=== PATIENT | female | born 1960 | race Caucasian/White ===

== ENCOUNTER 2020-11-24 08:00 | Outpatient (CLI) | payer BC | END 2020-11-24 23:59 | disposition home or self-care (01) | LOC: LAB.S 08:00 | PROVIDERS: ATTEND Physician Assistant Medical | DX: H01.9 Unspecified inflammation of eyelid (principal) | CPT/HCPCS: 87070; 87205 ==

== ENCOUNTER 2021-02-22 08:00 | Outpatient (CLI) | payer BC ==
[2021-02-22 16:34] LABS: BILIRUBIN,URINE NEGATIVE (NEGATIVE); GLUCOSE, URINE (UA) NEGATIVE (NEGATIVE); KETONES,URINE (UA) NEGATIVE (NEGATIVE); LEUKOCYTE ESTERASE, URINE MODERATE (NEGATIVE); NITRITE,URINE NEGATIVE (NEGATIVE); OCCULT BLOOD,URINE LARGE (NEGATIVE); PH,URINE 6.5 PH (5.0-7.5); PROTEIN,URINE 30 mg/dL (NEGATIVE); UROBILINOGEN,URINE 0.2 (NORMAL) E.U./dL (NORMAL)
[2021-02-22 16:36] LABS: CLARITY,URINE CLOUDY (CLEAR)
[2021-02-22 16:46] LABS: BACTERIA,URINE Few /HPF (None Seen); SQUAMOUS EPITHELIAL CELL,UR RARE Squamous (<= Few); WBC,URINE >25 /HPF (0-5)
== END 2021-02-22 23:59 | disposition home or self-care (01) ==
LOC: LAB.S 08:00
PROVIDERS: ATTEND Emergency Medicine
DX: N30.01 Acute cystitis with hematuria (principal)
CPT/HCPCS: 81001; 87086; 87181

== ENCOUNTER 2021-08-13 08:00 | Outpatient (CLI) | payer BC ==
[2021-08-13 14:25] LABS: BILIRUBIN,URINE NEGATIVE (NEGATIVE); GLUCOSE, URINE (UA) NEGATIVE (NEGATIVE); KETONES,URINE (UA) NEGATIVE (NEGATIVE); LEUKOCYTE ESTERASE, URINE MODERATE (NEGATIVE); NITRITE,URINE POSITIVE (NEGATIVE); OCCULT BLOOD,URINE LARGE (NEGATIVE); PH,URINE 6.5 PH (5.0-7.5); PROTEIN,URINE TRACE mg/dL (NEGATIVE); UROBILINOGEN,URINE 0.2 (NORMAL) E.U./dL (NORMAL)
[2021-08-13 14:33] LABS: BACTERIA,URINE Moderate /HPF (None Seen); CLARITY,URINE CLOUDY (CLEAR); RBC,URINE TNTC /HPF (0-5); SQUAMOUS EPITHELIAL CELL,UR FEW Squamous (<= Few); WBC,URINE >25 /HPF (0-5)
== END 2021-08-13 23:59 | disposition home or self-care (01) ==
LOC: LAB.S 08:00
PROVIDERS: ATTEND Physician Assistant Medical
DX: N30.01 Acute cystitis with hematuria (principal)
CPT/HCPCS: 81001; 87086

== ENCOUNTER 2021-10-10 12:40 | Emergency (ER) | payer BC ==
--- NOTE | 2021-10-10 13:11 | ED Physician Documentation ---
History of Present Illness - Stated complaint Stated Complaint: L GROIN SWELLING - Chief complaint Chief Complaint: Ext Problem - Additonal information Additional information: 61-year-old female presents to the emergency department for evaluation of 2 days left groin swelling and mild discomfort. She denies any falls or trauma. She is denying any swelling in the femur knee calf or foot. No chest pain or shortness of air. She does have night sweats but attributes this to menopause unchanged from recent baseline. No weight loss. No cough or fevers. Reports that she did have arthroscopy of the left knee July 05, 2021. She did have a televisit this morning with a provider through her insurance who advised her to come to the ER to be evaluated for a deep vein thrombosis. Patient states that she has increased the amount of weight she has been using with leg strengthening exercises but denies any known inciting event or trauma. Past medical history is most significant for hypertension for which she is compliant with her medications. Non-smoker. No anticoagulation. No history of DVT or cancer. Review of Systems Constitutional: reports: Reviewed and negative Ears: reports: Reviewed and negative Throat: reports: Reviewed and negative Cardiac: reports: Reviewed and negative Respiratory: reports: Reviewed and negative GI: reports: Reviewed and negative : reports: Other (left inguinal swelling) Skin: reports: Reviewed and negative Musculoskeletal: reports: Reviewed and negative Neurologic: reports: Reviewed and negative PD PAST MEDICAL HISTORY - Allergies Allergies/Adverse Reactions: Allergies Allergy/AdvReac Type Severity Reaction Status Date / Time diclofenac Allergy Itching Verified 10/10/21 12:51 PD ED PE NORMAL - General General: Alert and oriented X 3, No acute distress, Well developed/nourished - HEENT HEENT: Atraumatic, Ears normal, Moist mucous membranes - Neck Neck: Supple, no meningeal sign - Cardiac Cardiac: RRR, No murmur - Respiratory Respiratory: No respiratory distress, Clear bilaterally - Abdomen Abdomen: Normal bowel sounds, Soft, Non tender - Back Back: No CVA TTP - Derm Derm: Normal color, Warm and dry, No rash - Extremities Extremities: No deformity, No tenderness to palpate, Normal ROM s pain, No edema (midl edema left groin. No LAD, 2+ femoral pulse. no swelling of foot or leg. No erythema. non tendern yaneth) - Neuro Neuro: Alert and oriented X 3, road repairer 2-12 intact Eye Opening: Spontaneous Motor: Obeys Commands Verbal: Oriented GCS Score: 15 Results - Vitals Vitals: Vital Signs - 24 hr 10/10/21 12:46 Temperature 35.9 C L Heart Rate 89 Respiratory 18 Rate Blood Pressure 157/104 H O2 Saturation 97 Oxygen O2 Source Room air - Labs Labs: Laboratory Tests 10/10/21 10/10/21 13:52 13:52 WBC 5.4 RBC 4.69 Hgb 14.9 Hct 44.4 MCV 94.7 MCH 31.8 H MCHC 33.6 RDW 13.2 Plt Count 226 MPV 10.5 Neut # (Auto) 4.1 Lymph # (Auto) 0.9 L Lander # (Auto) 0.3 Eos # (Auto) 0.0 Baso # (Auto) 0.0 Absolute Nucleated RBC 0.00 Nucleated RBC % 0.0 Sodium 136 Potassium 3.6 Chloride 98 L Carbon Dioxide 28 Anion Gap 10.0 BUN 18 Creatinine 0.9 Estimated GFR (MDRD) 63 L Glucose 115 H Calcium 10.2 Total Bilirubin 1.1 H AST 27 ALT 15 Alkaline Phosphatase 45 Total Protein 7.5 Albumin 4.4 Globulin 3.1 Albumin/Globulin Ratio 1.4 Lipase 30 - Rads (name of study) US left leg Radiology: Final report received (No evidence of DVT. 10 x 3 x 4 cm hypoechoic structure in the left inguinal region which may represent large inguinal fluid collection versus hematoma versus necrotic mass.) CT abd/pelvis Radiology: Final report received (Fluid collection in the left iliopsoas bursa, compatible with bursitis) PD MEDICAL DECISION MAKING - ED course Complexity details: reviewed results, re-evaluated patient, considered differential, d/w patient ED course: 61-year-old female presents emergency department for evaluation of 2 days swelling in her left groin. No swelling in the leg however. She does report some mild tenderness. She did have knee surgery just over 3 months ago and has been increasing the weights with which she exercises. However no falls or trauma and does not remember an inciting event. Ultrasound of the leg was negative for DVT but did show a rather large 10 cm fluid collection that was not well described but was avascular. A CT of the abdomen pelvis did show what is likely to be left iliopsoas bursitis. Blood count is normal. No fevers. Very low suspicion for an infected bursa given lack of pain. These findings were discussed with the patient. I do recommend that she abstain from the leg exercises for about 1 week. Ice and NSAID use was discussed. Follow-up with orthopedic surgeon. Otherwise emergent return precautions discussed. Departure - Departure Disposition: 01 Home, Self Care Clinical Impression: Iliopsoas bursitis of left hip Comments: Tawnya chew were seen in the emergency department today for swelling in your lef t groin. Ultrasound of the leg did not show a blood clot but it did show a large fluid collection. Thus a CT scan was completed and it does show what is called iliopsoas bursitis. This is inflammation of one of the fluid-filled sacs in your groin that helps lubricate the joints and keep you free of pain with movement. I suspect that this has occurred because you have been increasing the weights w ith your leg strengthening after your knee surgery. I recommend that you reduce the knee exercises for about 1 week. Icing or using ibuprofen can be helpful for pain and swelling. Please discuss this ED visit with your orthopedic surgeon to let him know what has developed. If swelling and pain is better after about a week you can try the exercises given to you in the handout. Return to the ER if you develop swelling of the leg, have chest pain or sudden shortness of air.
[2021-10-10 13:57] LABS: BASOPHILS % (AUTO) 0.6 %; EOSINOPHILS % (AUTO) 0.4 %; HCT - HEMATOCRIT 44.4 % (37.0-47.0); HGB - HEMOGLOBIN 14.9 g/dL (12.0-16.0); LYMPHOCYTES # (AUTO) 0.9 10^3/uL (1.5-3.5); LYMPHOCYTES % (AUTO) 17.1 %; MEAN CORPUSCULAR HEMOGLOBIN 31.8 pg (27.0-31.0); MEAN CORPUSCULAR HGB CONC 33.6 g/dL (32.0-36.0); MEAN CORPUSCULAR VOLUME 94.7 fL (81.0-99.0); MEAN PLATELET VOLUME 10.5 fL (7.9-10.8); MONOCYTES # (AUTO) 0.3 10^3/uL (0.0-1.0); MONOCYTES % (AUTO) 5.8 %; NEUTROPHILS # (AUTO) 4.1 10^3/uL (1.5-6.6); NEUTROPHILS % (AUTO) 75.9 %; PLT - PLATELET COUNT 226 10^3/uL (130-450); RED BLOOD COUNT 4.69 10^6/uL (4.20-5.40); RED CELL DISTRIBUTION WIDTH 13.2 % (12.0-15.0); WHITE BLOOD COUNT 5.4 x10^3/uL (4.8-10.8)
--- NOTE | 2021-10-10 14:03 | Ultrasound Report ---
PROCEDURE: Duplex Ext Veins Left INDICATIONS: swelling X 2 days left groin TECHNIQUE: Real-time imaging, as well as color and pulse Doppler interrogation, were performed of the lower extr emity deep veins from the inguinal ligament to the popliteal fossa. COMPARISON: None. FINDINGS: The deep veins are normally compressible, and free of intraluminal thrombus. Color and pu lse Doppler demonstrate normal phasic intraluminal flow. There is normal augmentation response to di stal compression maneuver. There is a hypoechoic and slightly lobulated structure within the left inguinal region measures up to 10.2 x 3 x 4.2 cm in size with internal low-level echoes and through acoustic enhancement. No tax services intern al vascularity is seen. IMPRESSION: 1. No evidence of DVT in visualized left lower extremity veins. 2. 10.2 x 3 x 4.2 cm hypoechoic structure in left inguinal region as described above which may repres ent a large inguinal fluid collection versus hematoma versus necrotic mass. Consider CT for further e valuation of this area. Reviewed by: Titus Rosa MD on 10/10/2021 2:01 PM PST Approved by: Titus Rosa MD on 10/10/2021 2:01 PM PST Station ID: [id number]
[2021-10-10 14:09] LABS: ALBUMIN 4.4 g/dL (3.2-5.5); ALBUMIN/GLOBULIN RATIO 1.4 (1.0-2.2); BILIRUBIN,TOTAL 1.1 mg/dL (0.2-1.0); CALCIUM 10.2 mg/dL (8.5-10.3); CREATININE 0.9 mg/dL (0.4-1.0); POTASSIUM 3.6 mmol/L (3.5-5.0); TOTAL PROTEIN 7.5 g/dL (6.7-8.2)
[2021-10-10] MEDS ORDERED: IOVERSOL 320 100 ML VIAL IVP ONE ×2 (14:16→14:57)
--- NOTE | 2021-10-10 15:14 | CT Report ---
PROCEDURE: Abdomen/Pelvis W INDICATIONS: left groin swelling CONTRAST: IV CONTRAST: Optiray 320 ml: 100 PO CONTRAST: *NO PO CONTRAST TECHNIQUE: After the administration of oral and intravenous contrast, 5 mm thick sections acquired from the diap hragms to the symphysis. 5 mm thick coronal and sagittal reformats were acquired. For radiation dos e reduction, the following was used: automated exposure control, adjustment of mA and/or kV accordin g to patient size. COMPARISON: None. FINDINGS: Inferior chest: No focal consolidation, pleural effusion, or pneumothorax. No cardiomegaly or perica rdial effusion. Gallbladder: The gallbladder is distended with a smooth thin wall. Biliary tree: No intra-or extrahepatic biliary ductal dilatation. Liver: The liver demonstrates normal enhancement, size, and contour. 8.6 mm hypoattenuating lesion i n the right hepatic subcapsular region, most consistent with a cyst. Spleen: Normal enhancement, size and morphology is seen. Pancreas: No contour deforming mass or inflammatory change. Adrenals: Normal size without masses. Kidneys/ureters: Normal size and morphology. No solid masses or hydronephrosis. 3.9 cm hypoattenuatin g lesion in the left lower pole, most consistent with a cyst. Vasculature: No evidence of aneurysm or other significant vascular pathology. Lymphatic system: No pathologic enlargement by size criteria. GI/mesentery: Fecalization of the small bowel. Moderate stool burden throughout the colon. Normal lonnie earance of the appendix. Peritoneum/Retroperitoneum: No free intraperitoneal gas or large collection. Urinary bladder: The urinary bladder is distended with a smooth thin wall. Pelvic organs: No significant abnormality. Bones/soft tissues: Grade 1 anterolisthesis at L4-5 with vacuum phenomena. A left hip arthroplasty is seen. Calcific tendinopathy of the right hamstring tendon near the attachment. 4 x 5.9 cm hypoattenuating lesion in the left iliopsoas bursa. 2 cm fat attenuation lesion in the lef t posterior paraspinal muscle, compatible with intramuscular lipoma. Trace fat-containing compatible with hernia. IMPRESSION: 1.Fecalization of the small bowel, compatible with delayed transit. 2.Fluid collection in the left iliopsoas bursa, compatible with bursitis. Reviewed by: Nathan Medeiros MD on 10/10/2021 3:13 PM PST Approved by: Nathan Medeiros MD on 10/10/2021 3:13 PM PST Station ID: [id number]
[2021-10-10 15:44] VITALS: BP 139/92
== END 2021-10-10 15:44 | disposition home or self-care (01) ==
LOC: ED 12:40
DX: M70.72 Other bursitis of hip, left hip (principal); Y93.B9 Activity, other involving muscle strengthening exercises; I10 Essential (primary) hypertension
CPT/HCPCS: 36415; 74177; 80053; 83690; 85025; 93971; 99282; 99284; Q9967

== ENCOUNTER 2023-08-30 07:00 | Outpatient (CLI) | payer BC | END 2023-08-30 23:59 | disposition home or self-care (01) | LOC: LAB.S 07:00 | PROVIDERS: ATTEND Physician Assistant Medical | DX: N39.0 Urinary tract infection, site not specified (principal) | CPT/HCPCS: 87086; 87181 ==

== ENCOUNTER 2023-08-31 00:58 | Emergency (ER) | payer BC ==
[2023-08-31 03:06] LABS: BILIRUBIN,URINE NEGATIVE (NEGATIVE); GLUCOSE, URINE (UA) NEGATIVE (NEGATIVE); KETONES,URINE (UA) 15 mg/dL (NEGATIVE); LEUKOCYTE ESTERASE, URINE MODERATE (NEGATIVE); NITRITE,URINE NEGATIVE (NEGATIVE); OCCULT BLOOD,URINE LARGE (NEGATIVE); PH,URINE 6.5 PH (5.0-7.5); PROTEIN,URINE 30 mg/dL (NEGATIVE); UROBILINOGEN,URINE 0.2 (NORMAL) E.U./dL (NORMAL)
[2023-08-31 03:18] LABS: CLARITY,URINE CLEAR (CLEAR); WBC,URINE >25 /HPF (0-5)
[2023-08-31 03:19] LABS: BACTERIA,URINE Rare /HPF (None Seen); RBC,URINE TNTC /HPF (0-5); SQUAMOUS EPITHELIAL CELL,UR RARE Squamous (<= Few); WBC CLUMPS,URINE PRESENT
--- NOTE | 2023-08-31 03:50 | ED Physician Documentation ---
PD HPI FEMALE - Stated complaint Stated Complaint: FEMALE - Chief complaint Chief Complaint: Abd Pain - History obtained from History obtained from: Patient - Additional information Additional information: HPI from patient. Patient complains of 1 to 2 days of burning dysuria, urinary urgency, and 1 day of hematuria. The patient went to a clinic yesterday for the symptoms, was diagnosed with urinary tract infection, and was told that there would be a prescription at the [facility] pharmacy for Augmentin. Unfortunately, when the patient went to the pharmacy, they said they had never received the prescription. And, by that time, the clinic had closed for the day. The patient thought she would try the pharmacy again tomorrow, but she presents at this time due to worsening symptoms as noted above. Review of Systems Constitutional: denies: Fever, Chills, Sweats : reports: Dysuria, Frequency, Hematuria Musculoskeletal: denies: Back pain PD PAST MEDICAL HISTORY - Past Medical History Past Medical History: Yes Cardiovascular: Hypertension : Other Other Past Medical History: UTI - Past Surgical History Past Surgical History: Yes Ortho: Hip replacement, Knee replacement, ACL reconstruction, Spine surgery - Present Medications Home Medications: Ambulatory Orders Medication Instructions Recorded Confirmed Amox/Clav 500/125 [Augmentin 1 tablet PO Q12H #14 tablet 08/31/23 500/125] Lisinopril [Zestril] 20 mg PO BID 08/31/23 08/31/23 Phenazopyridine HCl [Pyridium] 200 mg PO TID PRN #6 tablet 08/31/23 amLODIPine [Norvasc] 5 mg PO DAILY 08/31/23 08/31/23 cloNIDine [Catapres] 0.1 mg PO BID 08/31/23 08/31/23 hydroCHLOROthiazide [Hydrodiuril] 25 mg PO DAILY 08/31/23 08/31/23 - Allergies Allergies/Adverse Reactions: Allergies Allergy/AdvReac Type Severity Reaction Status Date / Time diclofenac Allergy Itching Verified 08/31/23 01:11 - Social History Does the pt smoke?: No Smoking Status: Never smoker Does the pt drink ETOH?: Yes Does the pt have substance abuse?: No - Immunizations Immunizations are current?: Yes - POLST Patient has POLST: No PD ED PE NORMAL - Vitals Vital signs reviewed: Yes - General General: Alert and oriented X 3, No acute distress, Well developed/nourished - Abdomen Abdomen: Soft, Non tender - Back Back: No CVA TTP Results - Vitals Vitals: Oxygen O2 Source Room air - Labs Labs: Microbiology 08/31/23 01:21 Urine Culture - Preliminary Urine,Clean Catch CULTURE IN PROGRESS. RESULTS TO FOLLOW. Laboratory Tests 08/31/23 01:21 Urine Color LT RED Urine Clarity CLEAR Urine pH 6.5 Ur Specific [place] <=1.005 Urine Protein 30 H Urine Glucose (UA) NEGATIVE Urine Ketones 15 H Urine Occult Blood LARGE H Urine Nitrite NEGATIVE Urine Bilirubin NEGATIVE Urine Urobilinogen 0.2 (NORMAL) Ur Leukocyte Esterase MODERATE H Urine RBC TNTC H Urine WBC >25 H Urine WBC Clumps PRESENT Ur Squamous Epith Cells RARE Squamous Urine Bacteria Rare Ur Microscopic Review INDICATED Urine Culture Comments INDICATED PD Medical Decision Making - ED course Complexity details: considered differential, d/w patient ED course: Urinalysis is consistent with UTI: TNTC RBC, greater than 25 WBC/hpf. She is given 875 mg Augmentin p.o. along with 200 mg Pyridium p.o., and I am providing a prescription for both these medications. We discussed options for electronically submitting the prescription to her pharmacy of choice, but given the issue with yesterday's prescription as noted in HPI, above, we agreed that it would be better for me to provide her in-hand prescriptions and she can bring those to her pharmacy of choice. Departure - Departure Disposition: 01 Home, Self Care Clinical Impression: Urinary tract infection Qualifiers: Urinary tract infection type: acute cystitis Hematuria presence: with hematuria Qualified Code(s): N30.01 - Acute cystitis with hematuria Condition: Good Instructions: ED UTI Cystitis Female Prescriptions: Amox/Clav 500/125 [Augmentin 500/125] 1 tablet PO Q12H #14 tablet Phenazopyridine HCl [Pyridium] 200 mg PO TID PRN #6 tablet PRN Reason: dysuria Comments: The urinalysis confirms cystitis (urinary tract infection). For this, you were given the first dose of an antibiotic (Augmentin) in the emergency department and I am providing you with a 1-week prescription for this medication. You were also given a dose of Pyridium (medication that can help lessen the symptoms associated with urinary tract infection), and I am also providing a prescription for 2 days of the Pyridium. Discharge Date/Time: 08/31/23 04:20
[2023-08-31 03:57] VITALS: O2SAT 99
[2023-08-31] MEDS ORDERED: AMOX/CLAV 875 MG/125 MG TABLET PO STA (04:04)
[2023-08-31] MEDS ORDERED: PHENAZOPYRIDINE 100 MG TABLET PO STA (04:05)
[2023-08-31 06:49] VITALS: BP 148/80
== END 2023-08-31 04:20 | disposition home or self-care (01) ==
LOC: ED 00:58
DX: N30.01 Acute cystitis with hematuria (principal); I10 Essential (primary) hypertension
CPT/HCPCS: 81001; 87077; 87086; 87181; 99283; A9270; 81003

== ENCOUNTER 2023-10-06 08:04 | Outpatient (CLI) | payer BC ==
[2023-10-06 15:32] LABS: BUN - BLOOD UREA NITROGEN 17 mg/dL (6-20); CALCIUM 9.8 mg/dL (8.5-10.3); CARBON DIOXIDE - CO2 30 mmol/L (21-32); CHLORIDE 101 mmol/L (101-111); CHOL/HDL RATIO 2.1 (<4.4); CHOLESTEROL 213 mg/dL; CREATININE 0.9 mg/dL (0.6-1.3); GFR - MDRD 63 (>89); GLUCOSE 98 mg/dL (74-104); HDL CHOLESTEROL 102 mg/dL; LDL CHOLESTEROL,CALCULATED 100 mg/dL; POTASSIUM 3.7 mmol/L (3.5-4.5); SODIUM 138 mmol/L (135-145); TRIGLYCERIDES 55 mg/dL (48-352); VLDL CHOLESTEROL 11 mg/dL
== END 2023-10-06 08:05 | disposition home or self-care (01) ==
LOC: LAB.S 08:04
PROVIDERS: ATTEND Student in an Organized Health Care Education/Training Program
DX: I10 Essential (primary) hypertension (principal); E78.2 Mixed hyperlipidemia
CPT/HCPCS: 36415; 80048; 80061; 83721